=== PATIENT | female | born 1955 | race Caucasian/White ===

== ENCOUNTER 2017-04-01 22:31 | Emergency (ER) | payer OTHER ==
[2017-04-01 22:40] VITALS: BP 125/68; BMI 23.0
--- NOTE | 2017-04-01 23:24 | DR.GENAD ---
HPI - HPI Comment HPI Comment: NO LOC. HIT HER HEAD AND HAVE HEADACHE. TOOK PAIN MED BEFORE COMING. APPERA SLEEPY IN ED BUT WAKE UP TO ANSWER QUESTIONS - Complaint/Symptoms Chief Complaint Doctors Comments: FELL IN BATH TUB TONIGHT. PAIN NECK, LOWER BACK, RIGHT KNEE AND RIGHT HIP. Chief Complaint:: PT FELL IN BATHROOM TODAY OVER TUB AND C/T RT ARM, RT KNEE, BACK, AND NECK PAIN. NO DEFORMITIES NOTED. Self Treatment fo Chief Complaint: PT TOOK A PERCOCET 10 BEFORE ARRIVAL - Nurses notes reviewed Nurses Notes Review: Yes - Source History Provided: Family Member - Mode of Arrival Mode of Arrival: Wheelchair - Timing Onset of Chief Complaint: 04/01/17 Came on: Suddenly - Duration Duration: Constant Duration: Hours - Severity Severity: Moderate PMH - PMH Past Medical History: Yes Past Medical History: CHF, COPD, Depression, Diabetes, Hypertension Past Medical History Comment: HEP C Past Surgical History: Yes Surgical History: Hysterectomy, Tonsillectomy - Family History History of Family Medical Conditions: Yes Family Medical History: Diabetes Mellitus, Cancer, CT, Heart Failure, Hypertension - infectious screening Have you traveled outside the country in the last 6 months?: No ROS - Review of Systems Constitutional: Weakness, Fatigue, Other (SLEEPY). negative: Chills, Fever Eyes: No Symptoms Reported. negative: Eye Pain, Discharge ENTM: No Symptoms Reported. negative: Ear Pain, Nose Discharge, Nose Congestion , Throat Pain Respiratoy: No Symptoms Reported. negative: Productive Cough, Non-Productive Cough, Short of Breath, Wheezing Cardiovascular: No Symptoms Reported. negative: Chest Pain Gastrointestinal/Abdominal: negative: Abdominal Pain, Diarrhea, Nausea, Vomiting Genitourinary: negative: Dysuria, Frequency, Hematuria Neurological: Headache, Weakness, Dizziness, Other (SLEEPY/ TOOK PERCOCET.) Musculoskeletal: Back Pain, Joint Pain, Joint Swelling, Muscle Pain, Neck Pain, Back, Hip, Knee Integumentary: Bruises Hematologic/Lymphatic: Easy Bleeding, Easy Bruising Endocrine: No Symptoms Reported All Other Systems: Reviewed and Negative PE - Vital Signs Vitals: Temperature 98.7 F Pulse Rate 78 Respiratory Rate 16 Blood Pressure 125/68 O2 Sat by Pulse Oximetry 98 - General Limitations: No Limitations - Head Head Exam: Normal Inspection - Eyes Eye exam: Normal Appearance - ENT ENT Exam: Normal External Ear Exam External Ear Exam: Normal External Inspection TM/Canal Exam: Bilateral Normal Nose Exam: Normal Nose Exam Mouth Exam: Normal Inspection Throat Exam: Normal Inspection - Neck Neck Exam: Trachea Midline, Tenderness (POSTERIOR LOWER NECK.) - Chest Chest Inspection: Symmetric Chest Wall Rise - Respiratory Respiratory Exam: Normal Lung Sounds Bilat Respiratory Exam: Bilateral Clear to Auscultation - Cardiovascular Cardiovascular Exam: Regular Rate, Normal Rhythm, Normal Heart Sounds - Abdominal Exam Abdominal Exam: Normal Inspection - Extremities Extremities Exam: Full ROM (BETO WITH PAIN), Tenderness (RT HIP AND KNEE), Joint Swelling (RIGHT KNEE TENDER,) - Back Back Exam: Paraspinal Tenderness (LOWER BACK) - Neurologic Neurological Exam: Alert, Oriented X3 - Psychiatric Psychiatric Exam: Normal Affect, Normal Mood - Skin Skin Exam: Erythema MDM - Additional Information Additional Information Obtained From: Family - Differential Diagnosis Differential Diagnosis: MULTIPLE CONTUSION AND SPRAIN, LOWER BACK STRAIN, NECK SPRAIN Course - Treatment Treatment: SEE ORDERS. GIVEN NARCAN IN ED. VERY SLEEPY AND NOT WANTING TO WAKE UP AND LISTEN TO DISCHARGE INSTRUCTIONS. FULLY ALERT AFTER IM NARCAN. - Education/Counseling Education/Counseling: Patient, Family, Education Educated On: Diagnosis, Needs for Follow Up ROR - XRAY XRAY Interpreted by: Radiologist XRAY Findings: REPORT DISCUSS WITH PATIENT AND FAMILY. - Diagnosis Discharge Problem: Contusion of multiple sites, Multiple sprains Cervical strain, acute Qualifiers: Encounter type: initial encounter Qualified Code(s): S16.1XXA - Strain of muscle, fascia and tendon at neck level, initial encounter Headache Qualifiers: Headache type: post-traumatic Headache chronicity pattern: acute headache Intractability: intractable Qualified Code(s): G44.311 - Acute post-traumatic headache, intractable Lumbar compression fracture Qualifiers: Encounter type: initial encounter Lumbar vertebra fracture level: L3 Fracture type: closed Qualified Code(s): S32.030A - Wedge compression fracture of third lumbar vertebra, initial encounter for closed fracture - Discharge Plan Condition: Stable - Follow ups/Referrals Follow ups/Referrals: OBDULIA COFFEY [Primary Care Provider] - 04/02/17 - Instructions Instructions: Musculoskeletal Pain, Fall Prevention in the Home, Spinal Compression Fracture, Joint Pain, [id number] Additional Instructions: RETURN TO ED IF WORSE.
--- NOTE | 2017-04-02 00:32 | RAD ---
Right knee, AP and lateral Indication: Knee pain after fall Findings: No cortical disruption or malalignment identified. There is mild tricompartmental DJD. Larg e enthesophyte extends from the inferior patellar pole. No significant joint effusion. Impression: No acute fracture or subluxation of the right knee. Reported By:
--- NOTE | 2017-04-02 00:45 | CT ---
CT head without contrast Indication: Fall with headache Comparison: None Technique: CT images of the head were obtained without contrast. Automatic exposure control was utili [place]. Findings: There is no acute bleed, mass effect, or abnormal extra-axial collection. No acute calvaria l fracture identified. The visualized paranasal sinuses and mastoid air cells are clear. Impression: No acute intracranial abnormality. Reported By:
--- NOTE | 2017-04-02 00:48 | CT ---
CT cervical spine without contrast Indication: Fall with neck pain . Comparison: None Technique: CT images of the cervical spine were obtained without contrast. CT cervical spine without contrast Findings: Cervical spine alignment is normal. No acute cervical spine fracture or subluxation is iden tified. No significant prevertebral soft tissue swelling. No apical pneumothorax. There are patchy gr ound-glass opacities within the lung apices. Impression: No acute cervical spine fracture or subluxation. Reported By:
--- NOTE | 2017-04-02 00:53 | CT ---
CT lumbar spine without contrast Indication: Low back pain after fall. Comparison: None Technique: CT images of the lumbar spine were obtained without contrast. Automatic exposure control w as utilized. Findings: There is concavity of the superior L2 endplate resulting in approximately 30% height loss. Additionally, there is minimal (approximately 10%) height loss anteriorly at L3. No bony retropulsion . The lumbar spine alignment is normal. The remaining vertebral body heights are normally maintained. No facet subluxation. There is mild to moderate multilevel facet arthropathy and mild multilevel dis cogenic DJD. Impression: Mild L2 compression fracture and minimal height loss of the L3 vertebral body are age-indeterminate, but the L2 fracture appears chronic. Correlation with exam is recommended. Consider MRI, if indicated . Multilevel discogenic and facet arthropathy. Reported By:
--- NOTE | 2017-04-02 00:55 | CT ---
CT pelvis without contrast Indication: Pelvic pain, right hip pain, recent fall. Comparison: None Technique: CT images of the pelvis were obtained without contrast. Automatic exposure control was uti lized. Findings: There is mild subcutaneous fat stranding within the right buttock. No large hematoma identi fied. No acute cortical disruption or malalignment of the pelvis or hips identified. There are minima l degenerative changes of the hips, pubic symphysis, and SI joints. Impression: Mild contusion of the right buttock subcutaneous tissues without acute skeletal injury of the pelvis or hips. Reported By:
[2017-04-02] MEDS ORDERED: NARCAN INJ IM ONE (01:18)
[2017-04-02] MEDS ORDERED: NARCAN INJ ONE (01:18)
== END 2017-04-02 01:45 | disposition home or self-care (01) ==
LOC: ER 22:53
DX: S32.030A Wedge compression fracture of third lumbar vertebra, initial encounter for closed fracture (principal); S16.1XXA Strain of muscle, fascia and tendon at neck level, initial encounter; T14.8 Other injury of unspecified body region; G44.311 Acute post-traumatic headache, intractable; M25.551 Pain in right hip; W19.XXXA Unspecified fall, initial encounter; Y92.89 Other specified places as the place of occurrence of the external cause
CPT/HCPCS: 70450; 72125; 72131; 72192; 73560; 96372; 99282; 99283; J2310